=== PATIENT | female | born 1990 | race Caucasian/White ===

== ENCOUNTER 2022-07-09 03:24 | Emergency (ER) | payer MEDICAID ==
[~2022-07-09] VITALS: Ht 170.2 cm; Wt 89.0 kg
[~2022-07-09 03:24] MED LIST: [UNRECOGNIZED DRUG - OTHER]
[2022-07-09] MEDS ORDERED: MORPHINE SULFATE 4 MG/ML CPJ (NOT FOR IM USE) IV STA ×2 (03:54→05:04)
[2022-07-09] MEDS ORDERED: MORPHINE SULFATE 10 MG/ML CPJ IM ONE (04:00)
[2022-07-09] MEDS ORDERED: KETOROLAC 30MG/ML VIAL IV STA (04:05)
[2022-07-09 04:55] LABS: BASOPHILS % 0.5 % (0.0-2.0); EOSINOPHILS % 0.4 % (0.0-5.0); HEMATOCRIT. 43.7 % (36.0-48.0); HEMOGLOBIN. 14.6 g/dL (12.0-16.0); LYMPHOCYTES % 18.3 % (20.0-50.0); MEAN CORPUSCULAR HEMOGLOBIN 30.6 pg (28.0-32.0); MEAN CORPUSCULAR VOLUME 91.7 fL (81.0-99.0); MEAN PLATELET VOLUME 8.7 fl (7.4-10.4); MONOCYTES % 3.7 % (2.0-8.0); NEUTROPHILS % 77.1 % (40.0-76.0); PLATELET 282 x1000/uL (130-400); RED BLOOD CELL COUNT 4.77 mill/uL (4.2-5.4); RED CELL DISTRIBUTION WIDTH 13.3 % (11.6-14.6)
[2022-07-09 05:00] LABS: CHLORIDE 106 mEq/L (98-107)
[2022-07-09 05:04] LABS: HCG SCREEN NEGATIVE
[2022-07-09 05:07] LABS: ETHANOL BLOOD 118 mg/dL
[2022-07-09] MEDS ORDERED: KETAMINE HCL 50 MG/ML 10ML IV ONE (05:45)
[2022-07-09] MEDS ORDERED: PROPOFOL 200MG/20ML VIAL IV ONE (05:45)
[2022-07-09] MEDS ORDERED: IBUP-2030 PO (07:10)
[2022-07-09] MEDS ORDERED: OXYC-100 PO (07:10)
[2022-07-09 08:00] VITALS: BP 124/71
== END 2022-07-09 09:20 | disposition home or self-care (01) ==
LOC: ER 03:24
DX: S82.392A Other fracture of lower end of left tibia, initial encounter for closed fracture (principal); S82.832A Other fracture of upper and lower end of left fibula, initial encounter for closed fracture; G40.909 Epilepsy, unspecified, not intractable, without status epilepticus; V03.90XA Pedestrian on foot injured in collision with car, pick-up truck or van, unspecified whether traffic or nontraffic accident, initial encounter; Y93.89 Activity, other specified; Y92.488 Other paved roadways as the place of occurrence of the external cause
CPT/HCPCS: 27752; 36415; 70450; 73590; 73600; 73610; 80048; 80320; 84703; 85025; 96374; 96375; 96376; 99152; 99285; J1885; J2270; J2704; J3490; Z7610; G0480

== ENCOUNTER 2022-07-15 00:02 | Emergency (ER) | payer MEDICAID, BC ==
[~2022-07-15] VITALS: Ht 170.2 cm; Wt 89.0 kg
[~2022-07-15 00:02] MED LIST changes: +IBUP-2030 PO; +OXYC-100 PO
[2022-07-15 01:02] VITALS: BP 113/59
== END 2022-07-15 05:47 | disposition home or self-care (01) ==
LOC: ER 00:02
DX: M79.662 Pain in left lower leg (principal); Z79.899 Other long term (current) drug therapy
CPT/HCPCS: 99281

== ENCOUNTER 2024-07-23 09:58 | Emergency (ER) | payer BC, MEDICAID, OTHER ==
[~2024-07-23] VITALS: Ht 172.7 cm; Wt 94.1 kg
[2024-07-23 10:11] VITALS: O2SAT 100
[2024-07-23 10:12] VITALS: BP 118/78; PULSE 65; RESP 14; TEMP 36.8; O2SAT 100
[2024-07-23 10:39] LABS: EOSINOPHILS % 2.1 % (0.0-5.0); HEMATOCRIT. 40.9 % (36.0-48.0); HEMOGLOBIN. 13.6 g/dL (12.0-16.0); LYMPHOCYTES % 34.8 % (20.0-50.0); MEAN CORPUSCULAR HEMOGLOBIN 29.4 pg (28.0-32.0); MEAN CORPUSCULAR HGB CONC 33.2 g/dL (31.0-37.0); MEAN CORPUSCULAR VOLUME 88.4 fL (81.0-99.0); MEAN PLATELET VOLUME 8.5 fl (7.4-10.4); MONOCYTES % 5.3 % (2.0-8.0); NEUTROPHILS % 55.8 % (40.0-76.0); PLATELET 273 x1000/uL (130-400); RED BLOOD CELL COUNT 4.63 mill/uL (4.2-5.4); WHITE BLOOD COUNT 6.8 x1000/uL (4.5-11.0)
[2024-07-23 10:53] LABS: CHLORIDE 106 mEq/L (98-107); POTASSIUM 3.7 mEq/L (3.5-5.1); SODIUM 141 mEq/L (136-145)
[2024-07-23 10:54] LABS: CARBON DIOXIDE 26 mEq/L (21-32)
[2024-07-23 10:55] LABS: CALCIUM 9.4 mg/dL (8.7-10.4)
[2024-07-23 10:59] LABS: CREATININE 0.9 mg/dL (0.6-1.0); GLUCOSE 92 mg/dL (70-105)
[2024-07-23 11:00] LABS: UREA NITROGEN BLOOD 12 mg/dL (9-23)
[2024-07-23 11:01] LABS: ALANINE AMINOTRANSFERASE 40 IU/L (10-49); ALBUMIN 4.7 g/dL (3.2-4.8); ASPARTATE AMINOTRANSFERASE 29 IU/L (<34)
[2024-07-23 11:02] LABS: BILIRUBIN TOTAL 0.3 mg/dL (0.1-1.0); PROTEIN TOTAL 7.7 g/dL (6.0-8.3)
[2024-07-23 11:08] LABS: BILIRUBIN DIRECT < 0.1 mg/dL (<=3.0)
[2024-07-23 11:45] LABS: CLARITY URINE CLEAR (CLEAR); COLOR URINE DARK YELLOW (YELLOW); GLUCOSE URINE NEGATIVE (NEGATIVE); KETONES URINE NEGATIVE (NEGATIVE); LEUKOCYTE ESTERASE URINE NEGATIVE (NEGATIVE); NITRITE URINE NEGATIVE (NEGATIVE); OCCULT BLOOD URINE NEGATIVE (NEGATIVE); PH URINE 5.5 (4.5-8.0); PROTEIN URINE 1+ (NEGATIVE)
[2024-07-23] MEDS: ACETAMINOPHEN 325MG TABLET PO ONE (12:03)
[2024-07-23 12:07] LABS: RBC URINE 0-2 /hpf (0-2)
[2024-07-23] MEDS: KETOROLAC 30MG/ML VIAL IM ONE (12:07)
[2024-07-23] MEDS ORDERED: IBUP-2030 MT (12:07)
[2024-07-23 12:08] LABS: BACTERIA URINE 1+; SQUAMOUS EPITHELIAL CELL URINE 2+ /lpf (RARE/1+); YEAST URINE NONE SEEN
== END 2024-07-23 12:20 | disposition home or self-care (01) ==
LOC: ER 09:58
DX: S39.012A Strain of muscle, fascia and tendon of lower back, initial encounter (principal); M70.31 Other bursitis of elbow, right elbow; Z79.899 Other long term (current) drug therapy; Z79.1 Long term (current) use of non-steroidal anti-inflammatories (NSAID); Z98.890 Other specified postprocedural states; X50.1XXA Overexertion from prolonged static or awkward postures, initial encounter; Y93.89 Activity, other specified; Y92.89 Other specified places as the place of occurrence of the external cause; Y99.8 Other external cause status
CPT/HCPCS: 80076; 80048; 81003; 81025; 85025; 86850; 86900; 86901; 36415; 96372; 99283; J1885; Z7610 ×2

== ENCOUNTER 2024-10-17 09:53 | Emergency (ER) | payer OTHER ==
[~2024-10-17] VITALS: Ht 172.7 cm; Wt 91.0 kg
[~2024-10-17 09:53] MED LIST changes: +IBUP-2030 MT
[2024-10-17 09:54] VITALS: O2SAT 97
[2024-10-17] MEDS ORDERED: METH-653 MT (10:18)
[2024-10-17 10:39] VITALS: BP 130/70; PULSE 87; RESP 18; TEMP 36.6; O2SAT 98
== END 2024-10-17 10:39 | disposition home or self-care (01) ==
LOC: ER 09:53
DX: M25.562 Pain in left knee (principal); M79.10 Myalgia, unspecified site; R10.9 Unspecified abdominal pain; R56.9 Unspecified convulsions; Z79.899 Other long term (current) drug therapy; Z55.6 Problems related to health literacy; Z79.1 Long term (current) use of non-steroidal anti-inflammatories (NSAID)
CPT/HCPCS: 99283